=== PATIENT | female | born 1990 | race Caucasian/White ===

== ENCOUNTER 2023-10-26 13:56 | Emergency (ER) | payer BC, MEDICAID, OTHER ==
[~2023-10-26] VITALS: Ht 165.1 cm; Wt 59.0 kg
[2023-10-26 14:05] VITALS: BP 98/54; PULSE 84; RESP 16; TEMP 98.7; O2SAT 98
[2023-10-26] MEDS: HYDROCODONE/ACETAMINOPHEN 5/325MG TABLET PO STA (17:03)
[2023-10-26] MEDS: BACITRACIN ZINC OINT UDPKT TOP ONE ×3 (17:10)
== END 2023-10-26 17:15 | disposition home or self-care (01) ==
LOC: ER 13:56
DX: T24.211A Burn of second degree of right thigh, initial encounter (principal); T24.112A Burn of first degree of left thigh, initial encounter; X58.XXXA Exposure to other specified factors, initial encounter; Y93.89 Activity, other specified; Y92.89 Other specified places as the place of occurrence of the external cause; Y99.8 Other external cause status
CPT/HCPCS: 99283